=== PATIENT | male | born 1965 | race Hispanic/Latino ===

== ENCOUNTER 2016-12-28 09:49 | Outpatient (CLI) | payer OTHER ==
--- NOTE | 2016-12-28 10:27 | XRay Report ---
CHEST 2 VIEWS INDICATION: Peripheral artery disease, hypertension. COMPARISON: None similar. FINDINGS: PA and lateral chest radiographs demonstrate normal cardiomediastinal silhouette. Clear lungs. Few old healed bilateral mid to lower posterior rib deformities. Old healed right mid clavicular fracture as well. Multilevel thoracic spondylosis and mild dextroscoliosis. CONCLUSION: No acute disease in the chest. Thank you for the opportunity to participate in this patient's care.
== END 2016-12-28 09:50 | disposition home or self-care (01) ==
LOC: XRAY 09:49
PROVIDERS: ATTEND Internal Medicine
DX: I73.9 Peripheral vascular disease, unspecified (principal); I10 Essential (primary) hypertension; D65 Disseminated intravascular coagulation [defibrination syndrome]; I26.99 Other pulmonary embolism without acute cor pulmonale; M47.894 Other spondylosis, thoracic region; M41.84 Other forms of scoliosis, thoracic region; J18.9 Pneumonia, unspecified organism; F17.200 Nicotine dependence, unspecified, uncomplicated; Z86.718 Personal history of other venous thrombosis and embolism
CPT/HCPCS: 71020